=== PATIENT | female | born 1985 | race Caucasian/White ===

== ENCOUNTER 2019-04-17 12:03 | Emergency (ER) | payer OTHER, SELFPAY ==
[2019-04-17 12:10] VITALS: BP 129/72; PULSE 80; RESP 16; TEMP 37; O2SAT 97; BMI 23.4
--- NOTE | 2019-04-17 12:15 | ED_ITS ---
HPI - <VLADIMIR Maldonado - Last Filed: 04/17/19 19:47> General Chief complaint: OB/Uterine Contractions Stated complaint: 7 WKS ABD CRAMPING FEVER Time Seen by Provider: 04/17/19 12:05 Source: patient Mode of arrival: Ambulatory Limitations: no limitations History of Present Illness HPI Narrative: 34-year-old female , who is currently 7 weeks , presents emergency department complaining of right lower quadrant cramping over the past 2 weeks. She states it is intermittent and is a 8/10 as worse with lying down. She reports nausea that started 2 weeks ago as well and increased urge to defecate. LMP was February 23. She states over the past 2 days she has had an increased temp of 99-100F. She denies vaginal bleeding, vaginal discharge, vomiting, diarrhea, flank pain, dysuria, sore throat, cough, chest pain, shortness of breath, sinus pain, ear pain, or rhinorrhea. Patient reports her primary care provider is Dr. Felipe. Related Data Home Medications Medication Instructions Recorded Confirmed No Known Home Medications 03/27/19 03/27/19 Allergies Allergy/AdvReac Type Severity Reaction Status Date / Time No Known Drug Allergies Allergy Unverified 03/27/19 08:50 Review of Systems <VLADIMIR Maldonado - Last Filed: 04/17/19 19:47> Review of Systems Narrative: REVIEW OF SYSTEMS: GENERAL: Denies fever, chills, malaise, or wt. loss. HENT: No head trauma, sore throat, or dysphagia. EYES: No loss of vision, double vision, eye pain, or irritation. CARDIOVASCULAR: No chest pain, palpitations, or orthopnea. RESPIRATORY: No shortness of breath or cough. GASTROINTESTINAL: Complains nausea and RLQ/pelvic pain, see HPI. GENITOURINARY: No flank pain, urinary incontinence, hesitancy, frequency, or dysuria. No vaginal discharge or dyspareunia. Denies concerns for STIs. MUSCULOSKELETAL: No pain, weakness, or trauma. INTEGUMENTARY: No rash, lesions, or pruritus. NEURO: No numbness, tingling, memory loss, confusion, or headaches. PSYCH: No behavior or mood changes. PMFSH - <VLADIMIR Maldonado - Last Filed: 04/17/19 19:47> Past Medical History Medical history: Reports no medical history Surgical history: Reports no surgical history Exam <VLADIMIR Maldonado - Last Filed: 04/17/19 19:47> Initial Vital Signs Initial Vital Signs: Vital Signs Temperature 98.6 F 04/17/19 12:10 Pulse Rate 80 04/17/19 12:10 Respiratory Rate 16 04/17/19 12:10 Blood Pressure 129/72 04/17/19 12:10 Pulse Oximetry 97 04/17/19 12:10 PHYSICAL EXAMINATION: GENERAL: Well groomed, alert, and cooperative. Answers questions promptly and appropriately. Vital signs noted. HENT: Normocephalic, atraumatic. Hearing intact. Oral mucosa is pink and moist. EYES: Conjunctiva pink, sclera white, no periorbital swelling. CARDIOVASCULAR: S1 and S2 sounds normal. Regular rate and rhythm, no murmurs, clicks, or bruits. No pedal edema. RESPIRATORY: Normal respiratory rate, trachea midline, airway patent. No stridor, nasal flaring or accessory muscle use. Lungs are clear in all hernández without wheeze, rhonchi, or crackles. GASTROINTESTINAL: Bowel sounds normoactive. Abdomen is soft and non-tender. No organomegaly, no palpable masses. GENITALURINARY: No flank tenderness. MUSCULOSKELETAL: Normal gait and coordination. Equal tone and mass bilaterally. EXTREMITIES: CMS intact, no pedal edema. SKIN: Warm, dry, soft, appropriate color for ethnicity. No lesions, rashes, or wounds. NEURO: Alert and Oriented X 3. Good coordination. No ataxia, or sensory deficits, or cognitive issues. PSYCH: Appropriate affect and mood. <Marry Rodrigues DO - Last Filed: 04/19/19 07:18> Initial Vital Signs Initial Vital Signs: Vital Signs Temperature 98.6 F 04/17/19 12:10 Pulse Rate 80 04/17/19 12:10 Respiratory Rate 16 04/17/19 12:10 Blood Pressure 129/72 04/17/19 12:10 Pulse Oximetry 97 04/17/19 12:10 Course <VLADIMIR Maldonado - Last Filed: 04/17/19 19:47> Orders Ordered: ED Orders 04/17/19 12:14 US OB <= 14 weeks fetus Stat 04/17/19 12:19 Urinalysis Sreen (Dip Only) Stat 04/17/19 12:30 ABO RH Type Stat Complete Blood Count AUTO DIFF Stat Comprehensive Metabolic Panel Stat HCG Quantitative Stat Consultations Consultation #1: Patient staffed with Dr. oRdrigues. Vital Signs Vital signs: Vital Signs - 8 hr 04/17/19 12:10 04/17/19 13:58 Temperature 98.6 F Pulse Rate 80 60 Respiratory Rate 16 18 Blood Pressure 129/72 Blood Pressure [Left Arm] 111/62 Pulse Oximetry 97 <Marry Rodrigues DO - Last Filed: 04/19/19 07:18> Orders Ordered: ED Orders 04/17/19 12:14 US OB <= 14 weeks fetus Stat 04/17/19 12:19 Urinalysis Sreen (Dip Only) Stat 04/17/19 12:30 ABO RH Type Stat Complete Blood Count AUTO DIFF Stat Comprehensive Metabolic Panel Stat HCG Quantitative Stat Vital Signs Vital signs: Vital Signs - 8 hr 04/17/19 12:10 04/17/19 13:58 Temperature 98.6 F Pulse Rate 80 60 Respiratory Rate 16 18 Blood Pressure 129/72 Blood Pressure [Left Arm] 111/62 Pulse Oximetry 97 MDM - OB/Uterine Contractions <VLADIMIR Maldonado - Last Filed: 04/17/19 19:47> Medical Records Attestation: I reviewed the patient's medical records. Lab Data Attestation: I reviewed the patient's lab results. Result diagrams: 04/17/19 12:30 04/17/19 12:30 Labs: Lab Results 04/17/19 04/17/19 04/17/19 Range/Units 12: 12:30 12:30 WBC 7.3 (4.5-11.0) X10^3/uL RBC 3.99 L (4.0-5.2) X10^6/uL Hgb 12.7 (12.0-16.0) g/dL Hct 36.9 (36-46) % MCV 92.6 (80-100) fL MCH 31.7 (26-34) PG MCHC 34.3 (30-36) % RDW 12.5 (11.6-14.8) % Plt Count 240 (150-400) X10^3/uL Neut % (Auto) 66.4 (50-75) % Lymph % (Auto) 27.8 (25-40) % Andrew % (Auto) 5.0 (3-14) % Eos % (Auto) 0.6 L (2-4) % Baso % (Auto) 0.2 (0-2) % Neut # (Auto) 4800 (1755-0167) /uL Lymph # (Auto) 2000 (9016-0260) /uL Andrew # (Auto) 400 (0-900) /uL Eos # (Auto) 0 (0-450) /uL Baso # (Auto) 0 (0-100) /uL Sodium 136 L (137-145) mmol/L Potassium 4.2 (3.4-5.1) mmol/L Chloride 103 (98-107) mmol/L Carbon Dioxide 24 (22-32) mmol/L BUN 16 (7-17) mg/dL Creatinine 0.60 (0.52-1.04) mg/dL Estimated GFR > 60.0 (>60) mL/min BUN/Creatinine Ratio 26.7 H (6-22) Glucose 88 (70-100) mg/dL Calcium 9.0 (8.4-10.2) mg/dL Total Bilirubin 0.4 (0.2-1.3) mg/dL AST 26 (14-36) IU/L ALT 23 (<35) IU/L Alkaline Phosphatase 37 L (38-126) U/L Total Protein 7.3 (6.3-8.2) g/dL Albumin 4.2 (3.5-5.0) g/dL Globulin 3.1 (1.7-4.1) g/dL Albumin/Globulin Ratio 1.4 (1.0-2.8) HCG, Quant 189392 mIU/mL Urine Color Yellow Urine Appearance Clear Urine pH 6.5 (4.5-8.0) Ur Specific [place] <=1.005 (1.000-1.035) Urine Protein Negative (Negative) Urine Glucose (UA) Negative (Negative) g/dL Urine Ketones Negative (NEGATIVE) Urine Occult Blood Negative (Negative) Urine Nitrate Negative (Negative) Urine Bilirubin Negative (NEGATIVE) Urine Urobilinogen 0.2 (0.2) E.U./dL Ur Leukocyte Esterase Negative (NEGATIVE) Blood Type 04/17/19 Range/Units 12:30 WBC (4.5-11.0) X10^3/uL RBC (4.0-5.2) X10^6/uL Hgb (12.0-16.0) g/dL Hct (36-46) % MCV (80-100) fL MCH (26-34) PG MCHC (30-36) % RDW (11.6-14.8) % Plt Count (150-400) X10^3/uL Neut % (Auto) (50-75) % Lymph % (Auto) (25-40) % Andrew % (Auto) (3-14) % Eos % (Auto) (2-4) % Baso % (Auto) (0-2) % Neut # (Auto) (8339-6815) /uL Lymph # (Auto) (1355-3691) /uL Andrew # (Auto) (0-900) /uL Eos # (Auto) (0-450) /uL Baso # (Auto) (0-100) /uL Sodium (137-145) mmol/L Potassium (3.4-5.1) mmol/L Chloride (98-107) mmol/L Carbon Dioxide (22-32) mmol/L BUN (7-17) mg/dL Creatinine (0.52-1.04) mg/dL Estimated GFR (>60) mL/min BUN/Creatinine Ratio (6-22) Glucose (70-100) mg/dL Calcium (8.4-10.2) mg/dL Total Bilirubin (0.2-1.3) mg/dL AST (14-36) IU/L ALT (<35) IU/L Alkaline Phosphatase (38-126) U/L Total Protein (6.3-8.2) g/dL Albumin (3.5-5.0) g/dL Globulin (1.7-4.1) g/dL Albumin/Globulin Ratio (1.0-2.8) HCG, Quant mIU/mL Urine Color Urine Appearance Urine pH (4.5-8.0) Ur Specific [place] (1.000-1.035) Urine Protein (Negative) Urine Glucose (UA) (Negative) g/dL Urine Ketones (NEGATIVE) Urine Occult Blood (Negative) Urine Nitrate (Negative) Urine Bilirubin (NEGATIVE) Urine Urobilinogen (0.2) E.U./dL Ur Leukocyte Esterase (NEGATIVE) Blood Type A Positive Point of Care Testing Test Results Positive Imaging Data OB US: Radiologist's impression: [address] [address] Ultrasound Report Signed Patient: Jabier Guerrero#: [id number] : 1985Acct:[id number] Age/Sex: 34 / FDate of Service: 04/17/19 Loc: ED Accession Number: [id number] Procedure: US OB <= 14 weeks fetus Ordering Provider: Kathrin Herrera PROCEDURE: US OB <= 14 WEEKS FETUS INDICATIONS: RLQ PAIN AND CRAMPING, 7 WEEKS OUTSIDE/PRIOR DATING DATA: Last menstrual period (LMP): 02/24/19. LMP-based estimated date of delivery (RICHARD): 12/01/19. First dating scan (date and location): 04/17/19, this study. Estimated date of delivery (RICHARD) from first dating scan: 11/28/19. TECHNIQUE: Real-time scanning was performed of the fetus and maternal pelvic organs, with image documentation. Endovaginal scanning was also performed to better visualize the fetus and maternal ovaries. COMPARISON: None. FINDINGS: Embryo: [place]-rump length of 1.5 cm correlates with a gestational age of 7 weeks 6 days, plus or -5 days. Measurement variability in dating: +/- 4 weeks by LMP, +/- 7 days by mean sac diameter (use before 6 weeks gestation if crown-rump length not able to be measured), +/- 5 days by crown-rump length (up to 8 weeks 6 days gestation), +/- 7 days by crown-rump length (up to 13 weeks 6 days gestation). Maternal organs: Ovaries normal considering gestational status. Limited images through the kidneys demonstrate no hydronephrosis. IMPRESSION: 7 week 6 day gestational age with delivered a projected be centered on 11/28/19. Followup anatomic survey is recommended at approximately 20 weeks gestation. Dictated by: Ernesto Colmenares M.D. on 04/17/2019 at 13:12 Approved by: Ernesto Colmenares M.D. on 04/17/2019 at 13:13 MDM Narrative Medical decision making narrative: This is a 34-year-old female who is 7 weeks presents to the emergency department for right lower quadrant pain. Ultrasound shows a live IUP 7weeks, 6 days old with a corresponding HCG level. Less likely tubal as IUP is visualized and patient denies any vaginal bleeding. Differential also includes healthy versus threatened due to complains of cramping--however ultrasound results and lack of vaginal bleeding is reassuring. Less concern for infection/appendicitis due to normal WBC, normal urinalysis, and lack of other concerning symptoms such as diarrhea or vomiting. Patient was encouraged to call OB to schedule close follow-up as she may need a repeat ultrasound and HCG for continued monitoring of IUP. Patient was counseled extensively about returning to the emergency department for new or worsening symptoms such as chest pain, shortness of breath, uncontrollable vomiting, worsening abdominal pain, or etc. <Marry Rodrigues DO - Last Filed: 04/19/19 07:18> Lab Data Labs: Lab Results 04/17/19 04/17/19 04/17/19 Range/Units 12:19 12:30 12:30 WBC 7.3 (4.5-11.0) X10^3/uL RBC 3.99 L (4.0-5.2) X10^6/uL Hgb 12.7 (12.0-16.0) g/dL Hct 36.9 (36-46) % MCV 92.6 (80-100) fL MCH 31.7 (26-34) PG MCHC 34.3 (30-36) % RDW 12.5 (11.6-14.8) % Plt Count 240 (150-400) X10^3/uL Neut % (Auto) 66.4 (50-75) % Lymph % (Auto) 27.8 (25-40) % Andrew % (Auto) 5.0 (3-14) % Eos % (Auto) 0.6 L (2-4) % Baso % (Auto) 0.2 (0-2) % Neut # (Auto) 4800 (4750-9297) /uL Lymph # (Auto) 2000 (4033-0322) /uL Andrew # (Auto) 400 (0-900) /uL Eos # (Auto) 0 (0-450) /uL Baso # (Auto) 0 (0-100) /uL Sodium 136 L (137-145) mmol/L Potassium 4.2 (3.4-5.1) mmol/L Chloride 103 (98-107) mmol/L Carbon Dioxide 24 (22-32) mmol/L BUN 16 (7-17) mg/dL Creatinine 0.60 (0.52-1.04) mg/dL Estimated GFR > 60.0 (>60) mL/min BUN/Creatinine Ratio 26.7 H (6-22) Glucose 88 (70-100) mg/dL Calcium 9.0 (8.4-10.2) mg/dL Total Bilirubin 0.4 (0.2-1.3) mg/dL AST 26 (14-36) IU/L ALT 23 (<35) IU/L Alkaline Phosphatase 37 L (38-126) U/L Total Protein 7.3 (6.3-8.2) g/dL Albumin 4.2 (3.5-5.0) g/dL Globulin 3.1 (1.7-4.1) g/dL Albumin/Globulin Ratio 1.4 (1.0-2.8) HCG, Quant 123160 mIU/mL Urine Color Yellow Urine Appearance Clear Urine pH 6.5 (4.5-8.0) Ur Specific [place] <=1.005 (1.000-1.035) Urine Protein Negative (Negative) Urine Glucose (UA) Negative (Negative) g/dL Urine Ketones Negative (NEGATIVE) Urine Occult Blood Negative (Negative) Urine Nitrate Negative (Negative) Urine Bilirubin Negative (NEGATIVE) Urine Urobilinogen 0.2 (0.2) E.U./dL Ur Leukocyte Esterase Negative (NEGATIVE) Blood Type 04/17/19 Range/Units 12:30 WBC (4.5-11.0) X10^3/uL RBC (4.0-5.2) X10^6/uL Hgb (12.0-16.0) g/dL Hct (36-46) % MCV (80-100) fL MCH (26-34) PG MCHC (30-36) % RDW (11.6-14.8) % Plt Count (150-400) X10^3/uL Neut % (Auto) (50-75) % Lymph % (Auto) (25-40) % Andrew % (Auto) (3-14) % Eos % (Auto) (2-4) % Baso % (Auto) (0-2) % Neut # (Auto) (6532-1282) /uL Lymph # (Auto) (4633-3373) /uL Andrew # (Auto) (0-900) /uL Eos # (Auto) (0-450) /uL Baso # (Auto) (0-100) /uL Sodium (137-145) mmol/L Potassium (3.4-5.1) mmol/L Chloride (98-107) mmol/L Carbon Dioxide (22-32) mmol/L BUN (7-17) mg/dL Creatinine (0.52-1.04) mg/dL Estimated GFR (>60) mL/min BUN/Creatinine Ratio (6-22) Glucose (70-100) mg/dL Calcium (8.4-10.2) mg/dL Total Bilirubin (0.2-1.3) mg/dL AST (14-36) IU/L ALT (<35) IU/L Alkaline Phosphatase (38-126) U/L Total Protein (6.3-8.2) g/dL Albumin (3.5-5.0) g/dL Globulin (1.7-4.1) g/dL Albumin/Globulin Ratio (1.0-2.8) HCG, Quant mIU/mL Urine Color Urine Appearance Urine pH (4.5-8.0) Ur Specific [place] (1.000-1.035) Urine Protein (Negative) Urine Glucose (UA) (Negative) g/dL Urine Ketones (NEGATIVE) Urine Occult Blood (Negative) Urine Nitrate (Negative) Urine Bilirubin (NEGATIVE) Urine Urobilinogen (0.2) E.U./dL Ur Leukocyte Esterase (NEGATIVE) Blood Type A Positive Point of Care Testing Test Results Positive Discharge Plan Departure Patient Disposition: Home Clinical Impression: with abdominal cramping of lower quadrant, antepartum Discharge Date/Time: 04/17/19 14:07 Activity Restrictions/Additional Instructions: Thank you for entrusting me with your care today. As discussed, your ultrasound shows a 7 week, 6 day intrauterine gestational with a projected delivery of with date on 11/27/2018. Your HCG level is 113,120 which is reassuring. Please call your primary care provider in the next few days to discuss the need for repeat testing. Return to the emergency room if you develops worsening symptoms such as high fevers, worsening abdominal pain, chest pain, shortness of breath, uncontrollable vomiting, or other concerns. Prescriptions: No Action No Known Home Medications RF: 0 Referrals: Angie Peguero MD [Primary Care Provider] -
[2019-04-17 12:36] LABS: Appearance Urine UA CLEAR; Bilirubin Urine UA NEGATIVE (NEGATIVE); Color Urine UA YELLOW; Glucose Urine UA NEGATIVE (Negative); Ketones Urine UA NEGATIVE (NEGATIVE); Leukocyte Esterase Urine UA NEGATIVE (NEGATIVE); Nitrite Urine UA NEGATIVE (Negative); Occult Blood Urine UA NEGATIVE (Negative); Protein Urine UA NEGATIVE (Negative); Specific Gravity Urine UA <=1.005 (1.000-1.035); Urobilinogen Urine UA 0.2 E.U./dL (0.2)
[2019-04-17 12:37] LABS: pH Urine UA 6.5 (4.5-8.0)
[2019-04-17 12:41] LABS: Add Manual Diff / Slide Review NO; Basophils Absolute Auto 0 /uL (0-100); Basophils Percent Auto 0.2 % (0-2); Eosinophils Absolute Auto 0 /uL (0-450); Eosinophils Percent Auto 0.6 % (2-4); Hematocrit 36.9 % (36-46); Hemoglobin 12.7 g/dL (12.0-16.0); Lymphocytes Absolute Auto 2000 /uL (1100-4500); Lymphocytes Percent Auto 27.8 % (25-40); Mean Corpuscular HGB Conc 34.3 % (30-36); Mean Corpuscular Hemoglobin 31.7 PG (26-34); Mean Corpuscular Volume 92.6 fL (80-100); Monocytes Absolute Auto 400 /uL (0-900); Neutrophils Absolute Auto 4800 /uL (1500-7000); Neutrophils Percent Auto 66.4 % (50-75); Platelet Count 240 X10^3/uL (150-400); Red Blood Cell Count 3.99 X10^6/uL (4.0-5.2); Red Cell Distribution Width 12.5 % (11.6-14.8); White Blood Cell Count 7.3 X10^3/uL (4.5-11.0)
[2019-04-17 12:51] LABS: Alanine Aminotransferase 23 IU/L (<35); Albumin 4.2 g/dL (3.5-5.0); Albumin Globulin Ratio 1.4 (1.0-2.8); Alkaline Phosphatase 37 U/L (38-126); Aspartate Aminotransferase 26 IU/L (14-36); BUN Creatinine Ratio 26.7 (6-22); Bilirubin Total 0.4 mg/dL (0.2-1.3); Blood Urea Nitrogen 16 mg/dL (7-17); Carbon Dioxide 24 mmol/L (22-32); Chloride 103 mmol/L (98-107); Estimated Glomerular Filt Rate > 60.0 mL/min (>60); Globulin 3.1 g/dL (1.7-4.1); Glucose 88 mg/dL (70-100); HEMOLYSIS < 15 (0-50); Potassium 4.2 mmol/L (3.4-5.1); Sodium 136 mmol/L (137-145); Total Protein 7.3 g/dL (6.3-8.2)
[2019-04-17 13:33] LABS: HCG Quantitative /Beta subunit 113120 mIU/mL
[2019-04-17 13:58] VITALS: BP 111/62; PULSE 60; RESP 18
== END 2019-04-17 14:07 | disposition home or self-care (01) ==
PROVIDERS: Emergency Provider Nurse Practitioner; PCP Family Medicine
DX: O26.899 Other specified pregnancy related conditions, unspecified trimester (principal); R10.31 Right lower quadrant pain; Z3A.01 Less than 8 weeks gestation of pregnancy
CPT/HCPCS: 36415; 76801; 80053; 81003; 81025; 84702; 85025; 86900; 86901; 99282; 99284

== ENCOUNTER → 2019-04-30 11:32 | Outpatient (CLI) | payer OTHER, SELFPAY ==
[2019-04-30 11:54] LABS: Bacteria Urine None Seen; RBC Urine None Seen (0-5/HPF)
[2019-04-30 12:21] LABS: Add Manual Diff / Slide Review NO; Basophils Absolute Auto 0 /uL (0-100); Basophils Percent Auto 0.2 % (0-2); Eosinophils Absolute Auto 100 /uL (0-450); Eosinophils Percent Auto 1.1 % (2-4); Hematocrit 37.5 % (36-46); Hemoglobin 12.8 g/dL (12.0-16.0); Lymphocytes Absolute Auto 1800 /uL (1100-4500); Lymphocytes Percent Auto 27.8 % (25-40); Mean Corpuscular HGB Conc 34.1 % (30-36); Mean Corpuscular Hemoglobin 31.6 PG (26-34); Mean Corpuscular Volume 92.6 fL (80-100); Monocytes Absolute Auto 400 /uL (0-900); Monocytes Percent Auto 6.2 % (3-14); Neutrophils Absolute Auto 4300 /uL (1500-7000); Neutrophils Percent Auto 64.7 % (50-75); Platelet Count 246 X10^3/uL (150-400); Red Blood Cell Count 4.04 X10^6/uL (4.0-5.2); Red Cell Distribution Width 12.5 % (11.6-14.8); White Blood Cell Count 6.6 X10^3/uL (4.5-11.0)
[2019-04-30 12:53] LABS: Appearance Urine UA CLEAR; Bilirubin Urine UA NEGATIVE (NEGATIVE); Color Urine UA YELLOW; Glucose Urine UA NEGATIVE (Negative); Ketones Urine UA NEGATIVE (NEGATIVE); Leukocyte Esterase Urine UA NEGATIVE (NEGATIVE); Nitrite Urine UA NEGATIVE (Negative); Occult Blood Urine UA NEGATIVE (Negative); Protein Urine UA NEGATIVE (Negative); Specific Gravity Urine UA <=1.005 (1.000-1.035); Urobilinogen Urine UA 0.2 E.U./dL (0.2)
[2019-04-30 13:10] LABS: Squamous Epithelial Cell Urine 0-1 /HPF (0-5/HPF); WBC Urine 0-1/HPF (0-5/HPF)
[2019-04-30 13:11] LABS: Culture Indicated Urine Cult Not Indicated
[2019-04-30 17:13] LABS: HIV 1 & 2 Ab/Ag 4th Gen Combo NEGATIVE (NEGATIVE); Hep C Virus Ab w/Reflex Quant NEGATIVE s/c (NEGATIVE); Hepatitis B Surface Antigen NEGATIVE s/c (NEGATIVE)
[2019-05-02 20:11] LABS: RPR Screen Nonreactive (Nonreactive)
== END ==
PROVIDERS: PCP Family Medicine; Visit Provider Family Medicine
DX: O26.899 Other specified pregnancy related conditions, unspecified trimester (principal); Z34.81 Encounter for supervision of other normal pregnancy, first trimester; R10.2 Pelvic and perineal pain; R10.9 Unspecified abdominal pain
CPT/HCPCS: 36415; 80055; 81001; 86787; 86803; 86850; 87389

== ENCOUNTER → 2019-06-23 09:22 | Outpatient (CLI) | payer OTHER, SELFPAY ==
[2019-06-23 10:14] LABS: Appearance Urine UA CLEAR; Bilirubin Urine UA NEGATIVE (NEGATIVE); Color Urine UA YELLOW; Glucose Urine UA NEGATIVE (Negative); Ketones Urine UA NEGATIVE (NEGATIVE); Leukocyte Esterase Urine UA NEGATIVE (NEGATIVE); Nitrite Urine UA NEGATIVE (Negative); Occult Blood Urine UA NEGATIVE (Negative); Protein Urine UA NEGATIVE (Negative); Specific Gravity Urine UA <=1.005 (1.000-1.035); Urobilinogen Urine UA 0.2 E.U./dL (0.2)
== END ==
PROVIDERS: PCP Family Medicine; Visit Provider Family Medicine
DX: Z34.90 Encounter for supervision of normal pregnancy, unspecified, unspecified trimester (principal)
CPT/HCPCS: 81003

== ENCOUNTER → 2019-07-09 09:06 | Outpatient (CLI) | payer OTHER, SELFPAY ==
--- NOTE | 2019-07-09 09:07 | DI.US.S_ITS ---
PROCEDURE: US OB >= 14 WEEKS FETUS INDICATIONS: ANATOMY SCAN OUTSIDE/PRIOR DATING DATA: Last menstrual period (LMP): 02/24/19. LMP-based estimated date of delivery (RICHARD): 12/01/19. First dating scan (date and location): 04/17/19, this study. Estimated date of delivery (RICHARD) from first dating scan: 11/28/19. TECHNIQUE: Real-time scanning was performed of the fetus, with image documentation and biometric measurements. Endovaginal scanning: No COMPARISON: None. FINDINGS: General: A single living intrauterine gestation is present. Presentation: Vertex. Placenta: Placental position is posterior, without previa. Amniotic fluid index: 13.3 cm, normal range is 5-24 cm. heart rate: 158 beats per minute. Maternal cervical canal: 4.4 cm long. Normal lower limit is 2.5 cm. biometrics: Biparietal diameter: 20 weeks 0 days Head circumference: 19 weeks 6 days Abdominal circumference: 20 weeks 4 days Femur length: 19 weeks 6 days Estimated gestational age from initial scan: 19 weeks 5 days Composite gestational age from present scan: 20 weeks 1 day Estimated weight and percentile: 339 g; 74% Measurement variability for biometric dating: +/- 7 days from 14 weeks to 15 weeks 6 days gestation, +/- 10 days from 16 weeks to 21 weeks 6 days gestation, +/- 2 weeks from 22 weeks to 27 weeks 6 days gestation, +/- 3 weeks for 28 weeks gestation or later. weight reference: 4500 g or EFW >90/95% is considered macrosomia or large for gestational age. EFW <10% is small for gestational age. EFW 5% or less is considered intra-uterine growth restriction. Anatomic survey: Neuro: Ventricles are non-dilated at less than 10 mm. Cisterna magna is normal at 3-11 mm. Cerebellum is normal in size and morphology. Nuchal skin fold: Normal at less than 6 mm between 14-21 weeks gestational age. Face: Nose and lips, facial profile are normal. Spine: No evidence for spina bifida. Heart: 4-chambered heart is present, with normal ventricular outflow tracts. Diaphragm: Diaphragm is intact. Stomach: Left-sided stomach is present. Kidneys: No hydronephrosis. Normal is less than 5 mm in 2nd trimester, less than 7 mm in 3rd trimester. Cord: 3-vessel cord has orthotopic insertion. Bladder: Normal in size. Extremities: All 4 extremities identified. IMPRESSION: 1. Normal interval growth. 2. Normal anatomic survey. Dictated by: Angel Ly [facility] Interpreted: Nikkie Garcia MD on 07/09/2019 at 14:17 Approved by: Nikkie Garcia MD, PhD on 07/09/2019 at 14:26
== END ==
PROVIDERS: PCP Family Medicine; Referring Provider Family Medicine; Visit Provider Family Medicine
DX: Z34.92 Encounter for supervision of normal pregnancy, unspecified, second trimester (principal); Z3A.19 19 weeks gestation of pregnancy
CPT/HCPCS: 76811

== ENCOUNTER → 2019-07-17 09:49 | Outpatient (CLI) | payer OTHER, SELFPAY ==
[2019-07-19 18:05] LABS: AFP, Serum 159.4 ng/mL; Brief History NTD NG; Calc Gestational Age 20.6; Cigarette Smoker N; Donated Egg N; Donor Egg Age NG; Estriol, Free 2.72 ng/mL; Inhibin A, Dimeric 147 pg/mL; Inhibin A, MoM 0.81; Maternal Ethnicity HISPANIC; Maternal Weight 139 lbs; Number of Fetuses 1; Previous Pregnancy Down Syndro N; hCG, MoM 1.35; hCG, Serum 26.7 IU/mL
== END ==
PROVIDERS: PCP Family Medicine; Referring Provider Family Medicine; Visit Provider Family Medicine
DX: Z34.92 Encounter for supervision of normal pregnancy, unspecified, second trimester (principal)
CPT/HCPCS: 36415; 82105; 82677; 84702; 86336

== ENCOUNTER 2019-08-16 09:13 | Outpatient (CLI) | payer OTHER, SELFPAY ==
[2019-08-16 10:55] LABS: RBC Urine None Seen (0-5/HPF)
[2019-08-16 10:57] LABS: Appearance Urine UA CLEAR; Bilirubin Urine UA NEGATIVE (NEGATIVE); Color Urine UA YELLOW; Glucose Urine UA NEGATIVE (Negative); Ketones Urine UA NEGATIVE (NEGATIVE); Leukocyte Esterase Urine UA NEGATIVE (NEGATIVE); Nitrite Urine UA NEGATIVE (Negative); Occult Blood Urine UA NEGATIVE (Negative); Protein Urine UA NEGATIVE (Negative); Urobilinogen Urine UA 0.2 E.U./dL (0.2)
[2019-08-16 11:13] LABS: Bacteria Urine Moderate (10-30); Culture Indicated Urine Cult Not Indicated; Squamous Epithelial Cell Urine 1-5 /HPF (0-5/HPF); WBC Urine 0-1/HPF (0-5/HPF); pH Urine UA 7.5 (4.5-8.0)
== END 2019-08-16 10:15 | disposition home or self-care (01) ==
LOC: LABOR 10:44 → OB 14:34
PROVIDERS: PCP Family Medicine; Referring Provider Family Medicine; Visit Provider Family Medicine
DX: Z34.82 Encounter for supervision of other normal pregnancy, second trimester (principal); Z3A.24 24 weeks gestation of pregnancy
CPT/HCPCS: 59025; 81001; G0378; G0379

== ENCOUNTER → 2019-09-01 10:19 | Outpatient (CLI) | payer OTHER, SELFPAY ==
[2019-09-01 12:09] LABS: Add Manual Diff / Slide Review NO; Basophils Absolute Auto 0 /uL (0-100); Basophils Percent Auto 0.3 % (0-2); Eosinophils Absolute Auto 100 /uL (0-450); Eosinophils Percent Auto 0.9 % (2-4); Hemoglobin 12.2 g/dL (12.0-16.0); Lymphocytes Absolute Auto 1800 /uL (1100-4500); Lymphocytes Percent Auto 20.3 % (25-40); Mean Corpuscular HGB Conc 33.8 % (30-36); Mean Corpuscular Hemoglobin 32.2 PG (26-34); Mean Corpuscular Volume 95.2 fL (80-100); Monocytes Absolute Auto 500 /uL (0-900); Monocytes Percent Auto 5.3 % (3-14); Neutrophils Absolute Auto 6600 /uL (1500-7000); Neutrophils Percent Auto 73.2 % (50-75); Platelet Count 234 X10^3/uL (150-400); Red Blood Cell Count 3.78 X10^6/uL (4.0-5.2); White Blood Cell Count 9.1 X10^3/uL (4.5-11.0)
[2019-09-01 12:24] LABS: GTT (PREG) 1 Hour PP 50gm Dose 109 mg/dL (76-139)
== END ==
PROVIDERS: PCP Family Medicine; Referring Provider Family Medicine; Visit Provider Family Medicine
DX: Z34.02 Encounter for supervision of normal first pregnancy, second trimester (principal); Z3A.24 24 weeks gestation of pregnancy
CPT/HCPCS: 36415; 82950; 85025

== ENCOUNTER → 2019-09-19 10:17 | Outpatient (CLI) | payer OTHER, SELFPAY ==
--- NOTE | 2019-09-19 10:18 | DI.US.S_ITS ---
PROCEDURE: US OB LIMITED INDICATIONS: LGA OUTSIDE/PRIOR DATING DATA: Last menstrual period (LMP): 02/24/19. LMP-based estimated date of delivery (RICHARD): 12/01/19. First dating scan (date and location): 04/17/19. Estimated date of delivery (RICHARD) from first dating scan: 11/28/19. TECHNIQUE: Real-time scanning was performed of the fetus, with image documentation and biometric measurements. Endovaginal scanning: Not performed COMPARISON: None. FINDINGS: General: A single living intrauterine gestation is present. Presentation: Vertex. Placenta: Placental position is posterior, without previa. Amniotic fluid index: 20.5 cm, normal range is 5-24 cm. heart rate: 136 beats per minute. Maternal cervical canal: 4.1 cm long. Normal lower limit is 2.5 cm. biometrics: Biparietal diameter: 8.2 cm, correlating with 33 weeks and 0 days (98th percentile) Head circumference: 29.2 cm, correlating with 32 weeks and 0 days (74th percentile) Abdominal circumference: 20.8 cm, correlating with 32 weeks and 3 days (97th percentile) Femur length: 5.5 cm, correlating with 28 weeks and 6 days (10th percentile) Estimated gestational age from initial scan: not applicable. Composite gestational age from present scan: 31 weeks and 4 days Estimated weight and percentile: 1757 g which correlates with the 84th percentile based off estimated gestational age. Measurement variability for biometric dating: +/- 7 days from 14 weeks to 15 weeks 6 days gestation, +/- 10 days from 16 weeks to 21 weeks 6 days gestation, +/- 2 weeks from 22 weeks to 27 weeks 6 days gestation, +/- 3 weeks for 28 weeks gestation or later. weight reference: 4500 g or EFW >90/95% is considered macrosomia or large for gestational age. EFW <10% is small for gestational age. EFW 5% or less is considered intra-uterine growth restriction. Other: Maternal ovaries were not visualized on today's study. IMPRESSION: Single living intrauterine gestation with an estimated sonographic gestational age of approximately 31 weeks and 4 days. Expected interval growth has occurred. Estimated weight measuring approximately 1757 g, correlating with the 84th percentile based off estimated gestational age. 4 quadrant KRISTINA measuring 20.5 cm with the largest vertical fluid pocket measuring 7.3 cm. Dictated by: Bandar Mcpherson M.D. on 09/19/2019 at 11:23 Approved by: Bandar Mcpherson M.D. on 09/19/2019 at 11:29
== END ==
PROVIDERS: PCP Family Medicine; Referring Provider Family Medicine; Visit Provider Family Medicine
DX: O26.843 Uterine size-date discrepancy, third trimester (principal); Z3A.31 31 weeks gestation of pregnancy
CPT/HCPCS: 76815

== ENCOUNTER → 2019-11-06 10:12 | Outpatient (CLI) | payer OTHER, SELFPAY ==
[2019-11-07 19:00] LABS: Strep Grp B PCR NEG for Grp B Strep
== END ==
PROVIDERS: PCP Family Medicine; Visit Provider Family Medicine
DX: Z34.90 Encounter for supervision of normal pregnancy, unspecified, unspecified trimester (principal)
CPT/HCPCS: 87653

== ENCOUNTER 2019-11-25 00:10 | Inpatient (IN) | payer OTHER, SELFPAY ==
[2019-11-25] MEDS: LACTATED RINGERS 1,000 ML 100 ML IV (00:45)
[2019-11-25 00:57] LABS: Add Manual Diff / Slide Review NO; Basophils Absolute Auto 0 /uL (0-100); Basophils Percent Auto 0.2 % (0-2); Eosinophils Absolute Auto 0 /uL (0-450); Eosinophils Percent Auto 0.4 % (2-4); Hematocrit 38.4 % (36-46); Lymphocytes Absolute Auto 2600 /uL (1100-4500); Lymphocytes Percent Auto 24.1 % (25-40); Mean Corpuscular HGB Conc 33.9 % (30-36); Mean Corpuscular Hemoglobin 32.3 PG (26-34); Mean Corpuscular Volume 95.1 fL (80-100); Monocytes Absolute Auto 600 /uL (0-900); Monocytes Percent Auto 6.1 % (3-14); Neutrophils Absolute Auto 7400 /uL (1500-7000); Neutrophils Percent Auto 69.2 % (50-75); Platelet Count 200 X10^3/uL (150-400); Red Blood Cell Count 4.03 X10^6/uL (4.0-5.2); Red Cell Distribution Width 13.3 % (11.6-14.8); White Blood Cell Count 10.6 X10^3/uL (4.5-11.0)
--- NOTE | 2019-11-25 00:58 | P.HPOB_ITS ---
OB HPI Date/Time Date of admission: 11/25/19 Date Patient Seen: 11/25/19 Time Patient Seen: 00:45 History of Present Condition Chief complaint: EVAL OF LABOR : 2 Para: 1 Estimated Date of Delivery: 11/30/19 Estimated Gestational Age (weeks): 39.2 Narrative: Hermila Guerrero is a 34 year old female here for evaluation of labor. Was checked by RN and found to be 7/C/-1. Pt requested epidural and that process is currently in place. Pt reports SROM at this time. Uncomplicated PN care w/ . History of Present care: good care Dating criteria: LMP confirmed by 1st trimester US Ultrasounds: normal mid trimester US Obstetrical complications: none Preadmission Labs Blood type: A (+) positive -: Antibody screen: negative, GBS status: negative, HBsAG: negative, HIV: negative and RPR/VDLR: negative -: Rubella: immune HCAB: negative 1 hr GTT: 109 Prior (ies) History: 1 term NSVB 3 years ago Evaluation Evaluation Baseline heart rate: 130 Variability: Moderate (11-25) monitor accelerations: Present monitor decelerations: Variable Contraction Frequency (minutes): 2 Uterine Contraction Intensity: Strong/Firm Category of Tracing: II Cervical dilation (cm): 9 Cervical effacement (%): 100 station: 0 Laboratory results: Laboratory Tests 11/25/19 00:47 WBC 10.6 RBC 4.03 Hgb 13.0 Hct 38.4 MCV 95.1 MCH 32.3 MCHC 33.9 RDW 13.3 Plt Count 200 Neut % (Auto) 69.2 Lymph % (Auto) 24.1 L [place] % (Auto) 6.1 Eos % (Auto) 0.4 L Baso % (Auto) 0.2 Neut # (Auto) 7400 H Lymph # (Auto) 2600 [place] # (Auto) 600 Eos # (Auto) 0 Baso # (Auto) 0 PFSH Medical History Anemia (Acute) Chicken pox (Resolved ~1991) Chronic headaches (Acute) Seasonal allergies (Chronic ~2011) Segmental colitis (Chronic) Shoulder pain (Chronic ~2016) Surgical History [place] teeth extracted (Acute) Family History Father Hyperlipidemia Grandfather Cancer Alzheimer's disease Multiple myeloma Grandmother Cancer Grandmother Stomach problems Mother Irregular cardiac rhythm Family/Other Epilepsy Sister Asthma Social History marital status: household members: spouse and children pets and animals: Yes (X 1 dog) education level: college occupational status: unemployed current occupational exposures/hazards: No special noah needs: No Smoking Status: Never smoker alcohol intake: current substance use type: does not use Meds Home Medications and Allergies Home Medications Medication Instructions Recorded Confirmed Type prenat.vits,dhaval,oei-deox-fyxrp 1 tab PO DAILY 04/19/19 11/06/19 History pyridoxine (vitamin B6) 25 mg 25 mg PO DAILY 04/19/19 11/06/19 History lozenges Allergies Allergy/AdvReac Type Severity Reaction Status Date / Time No Known Drug Allergies Allergy Verified 11/25/19 01:14 Review of Systems Review of Systems ROS: Yes All systems reviewed with the patient and are negative except as otherwise documented Exam Vital Signs (past 8 hours): BP 124/58, [id number], T36.0C Temporal Presentation: vertex Objective Labs Result Diagrams: 11/25/19 00:47 Labs: Laboratory Results - last 24 hr 11/25/19 00:47 WBC 10.6 RBC 4.03 Hgb 13.0 Hct 38.4 MCV 95.1 MCH 32.3 MCHC 33.9 RDW 13.3 Plt Count 200 Neut % (Auto) 69.2 Lymph % (Auto) 24.1 L [place] % (Auto) 6.1 Eos % (Auto) 0.4 L Baso % (Auto) 0.2 Neut # (Auto) 7400 H Lymph # (Auto) 2600 [place] # (Auto) 600 Eos # (Auto) 0 Baso # (Auto) 0 Assessment and Plan Assessment and Plan Assessment and Plan narrative: A: Term multipara, active labor, no indication for GBS prophylaxis Cat II FHR (overall reassuring) P: Admit, routine orders. Will Continue to call and stand by for remedios h, if needed. Anticipate NSVB. Time Spent with Patient Total time spent with greater than 50% in coordination of care (as documented) at patient's floor/unit and/or counseling patient:: 15-24 minutes
[2019-11-25 01:14] VITALS: BP 117/56
--- NOTE | 2019-11-25 01:59 | PM.OBPNLAB ---
Date/Time Date Patient Seen: 11/25/19 Time Patient Seen: 02:00 Pain Control Pain control: epidural Pelvic Exam Dilation (cm): 9 Effacement (%): 100 station: 0 Amniotic membrane status: Ruptured Contractions Contraction frequency (min): 3 Contraction pattern: Regular Contraction intensity: Strong/Firm Status status: Category l Heart Rate Baseline: 120 Monitor Accelerations: Absent Monitor Decelerations: Absent Monitor Variability: Moderate Assessment and Plan Comments: 34yo at 39w2d who presented in active labor. No complications with . SROM with production of clear fluid. Rh positive, GBS negative. - Expectant management, anticipate - Epidural in place for pain control - FHT reassuring - GBS negative, no prophylaxis indicated
[2019-11-25 03:41] LABS: COVID19 -Nasal RAPID Negative (Negative)
[2019-11-25] MEDS: OXYTOCIN 10 UNIT/ML VIAL 20 UNIT (03:50)
--- NOTE | 2019-11-25 04:22 | PM.OBPRVD ---
Labor & Delivery Delivery date: 11/25/19 Intrapartal events: None Cervical ripening method: none Induction method: none Delivery monitor: external FHT Route of delivery: Episiotomy description: None L&D Laceration Description: Perineal - 2nd Degree Delivery repair: chromic Estimated blood loss (mL): 300 Anesthesia type: Epidural Complications: None Narrative: PROCEDURE: at 39w2d presented in active labor and was admitted to Labor and Delivery. The patient progressed through the 1st stage over 4.5 hours. Pain was controlled with an epidural. Pt had SROM with production of clear fluid. The patient progressed through the 2nd stage over 43 minutes and delivered a viable male infant with APGARs 9/9 at 3:45 via without complications. The perineum and vagina were inspected with 2nd degree laceration repaired with 3-O Chromic. PREPROCEDURE DIAGNOSIS: Intrauterine at 39w2d GBS negative RH positive POSTPROCEDURE DIAGNOSIS: Intrauterine at 39w2d, delivered Same as preprocedure ROM APPEARANCE: Clear BABY A WEIGHT: 8lb0oz BABY A NUCHAL CORD: x1, reduced after delivery PLACENTA DELIVERY TIME: 3:51 PLACENTA APPEARANCE: Clear Baby 1: Infant gender: Male Presentation: vertex position: Right Occiput Anterior Placenta delivery description: Spontaneous cord vessel description: 3 Vessels score (1 min): 9 score (5 min): 9 Plan for aftercare: Normal care
[2019-11-25] MEDS: IBUPROFEN 600 MG TABLET PO ×3 (05:32→21:04)
[2019-11-25] MEDS: DERMOPLAST SPRAY 20% 60 ML 1 SPRAY TOP (07:14)
[2019-11-25] MEDS: PRENATAL VIT,CALC/IRON/FOLIC 1 TABLET 1 TAB PO (07:35)
[2019-11-25] MEDS: DOCUSATE 100 MG CAPSULE PO (07:35)
[2019-11-25 21:04] VITALS: TEMP 37.1
[2019-11-25] MEDS: LANOLIN OINT 7 GM 1 APPLIC TOP (21:05)
--- NOTE | 2019-11-26 08:26 | PM.OBDS.1 ---
Discharge Providers Provider Date of admission: 11/25/19 00:10 Discharge Date: 11/26/19 Primary care physician: Angie Peguero MD Consults: 11/26/19 04:22 Consult to Hoop Machine Operator Routine Comment: Discharge provider: Angie Peguero MD Summary Hospital Course Date Patient Seen: 11/26/19 Time Patient Seen: 07:45 Procedures: Spontaneous vaginal delivery Hospital Course: The pt was admitted in active labor. She received an epidural for pain control. She progressed to complete and had an of a viable baby boy on 11/24. A 2nd degree laceration was repaired. The pt tolerated delivery well. , there were no complications. At the time of discharge was voiding, ambulating, and passing flatus without difficulty. Her lochia was decreasing appropriately. Her pain was adequately controlled. She is with good latch. She will follow-up in clinic in 6 weeks for her check. Her is considering vasectomy for contraception, and patient will likely be interested in OCPs in the interim. Peripartum Data Infant Delivery Method: Natural Vaginal Laceration description: Perineal - 2nd Degree Episiotomy description: None Procedures: Spontaneous vaginal delivery complications: none 1: Gender: Male Disposition of : home Status at Discharge Cognitive/behavioral status at discharge: oriented Functional status at discharge: independent ambulation Overall status at discharge: patient is progressing back to baseline Time Spent with Patient Time attestation: Total time spent providing and/or coordinating discharge services: Objective Labs Result Diagrams: 11/25/19 00:47 Discharge Plan Discharge Plan Patient Disposition: Home Discharge orders & Medications Prescriptions: New acetaminophen 325 mg Tablet 650 mg PO Q6HR PRN (Reason: Pain, Mild (1-3)) Qty: 30 RF: 0 Dermoplast (with menthol) 20-0.5 % Aerosol 1 spray topical Q1HR PRN (Reason: perineal pain) Qty: 56 RF: 0 docusate sodium [DOK] 100 mg Capsule 100 mg PO DAILY Qty: 30 RF: 0 ibuprofen 600 mg Tablet 600 mg PO Q6HR PRN (Reason: Pain, Mild (1-3)) Qty: 30 RF: 0 Bfv-U-Mzozro Cream 1 applic topical PRN PRN (Reason: Tenderness) Qty: 15 RF: 0 Continued prenat.vits,dhaval,[id number] Tablet 1 tab PO DAILY RF: 0 Discontinued pyridoxine (vitamin B6) 25 mg lozenge 25 mg PO DAILY RF: 0 Follow up/Referrals: Angie Peguero MD [Primary Care Provider] - 6 Weeks (please f/u w/ Dr. Peguero on January 08 @ 9am) Diet/Activity/Treatments Diet: Diet as Tolerated and Regular Skin/Wound/Dressing Care Report to your healthcare provider any signs of infection, such as:: chills, fever, increased pain and unusual drainage Visit Report/Discharge Packet Instructions: DI for Labor and Delivery, Vaginal Stand Alone Forms: Discharge: Care Visit Report Forms: Patient Portal/API, Stroke Signs & Symptoms Discharge Data Primary Care Provider: Angie Peguero Discharges patient from system. Discharge Date/Time: 11/26/19 11:20
[2019-11-26] MEDS: DOCUSATE 100 MG CAPSULE PO (09:00)
[2019-11-26] MEDS: PRENATAL VIT,CALC/IRON/FOLIC 1 TABLET 1 TAB PO (09:00)
[2019-11-26] MEDS: IBUPROFEN 600 MG TABLET PO (09:01)
== END 2019-11-26 11:20 | disposition home or self-care (01) | DRG 807 ==
PROVIDERS: Admitting Provider Nurse Practitioner Obstetrics & Gynecology; PCP Family Medicine; Referring Provider Nurse Practitioner Obstetrics & Gynecology; Visit Provider Nurse Practitioner Obstetrics & Gynecology
DX: O70.1 Second degree perineal laceration during delivery (principal); Z37.0 Single live birth; Z3A.39 39 weeks gestation of pregnancy
CPT/HCPCS: 01967; 36415; 59050; 59400; 85025; 86850; 86900; 86901; 87635; G0379; J2590

== ENCOUNTER → 2020-02-11 12:09 | Outpatient (CLI) | payer OTHER, SELFPAY | PROVIDERS: PCP Family Medicine; Visit Provider Family Medicine | DX: Z11.3 Encounter for screening for infections with a predominantly sexual mode of transmission (principal) | CPT/HCPCS: 87491; 87591 ==